=== PATIENT | female | born 1960 | race Caucasian/White ===

== ENCOUNTER 2021-05-06 10:32 | Outpatient (CLI) | payer BC, SELFPAY ==
[2021-05-06 10:56] VITALS: BP 148/96; PULSE 82; RESP 20; TEMP 36.8; O2SAT 92; BMI 30.2
[2021-05-06 11:15] VITALS: BP 129/85; PULSE 94; RESP 18; TEMP 36.7; O2SAT 97
[2021-05-06 11:40] VITALS: BP 166/102; PULSE 87; RESP 18; TEMP 37.7; O2SAT 92
== END 2021-05-06 10:33 | disposition home or self-care (01) ==
LOC: OPS 10:35
PROVIDERS: Visit Provider Family Medicine
DX: U07.1 COVID-19 (principal)
CPT/HCPCS: 96365

== ENCOUNTER → 2022-12-22 08:36 | Outpatient (BNVA) | payer BC, SELFPAY | PROVIDERS: PCP Family Medicine; Visit Provider Family Medicine | DX: I10 Essential (primary) hypertension (principal) | CPT/HCPCS: 80053; 80061; 81000; 84439; 84443; 85025 ==

== ENCOUNTER → 2023-01-29 09:43 | Outpatient (BNVA) | payer BC, SELFPAY | PROVIDERS: PCP Family Medicine; Visit Provider Family Medicine | DX: I10 Essential (primary) hypertension (principal); F41.9 Anxiety disorder, unspecified | CPT/HCPCS: 80048 ==

== ENCOUNTER → 2023-05-07 11:30 | Outpatient (BNVA) | payer BC, SELFPAY | PROVIDERS: PCP Family Medicine; Visit Provider Family Medicine | DX: I10 Essential (primary) hypertension (principal); E03.8 Other specified hypothyroidism; Z86.39 Personal history of other endocrine, nutritional and metabolic disease; F41.9 Anxiety disorder, unspecified | CPT/HCPCS: 84439; 84443; 86376 ==

== ENCOUNTER → 2023-07-30 08:53 | Outpatient (BNVA) | payer BC, SELFPAY | PROVIDERS: PCP Family Medicine; Visit Provider Family Medicine | DX: E06.3 Autoimmune thyroiditis (principal); Z86.39 Personal history of other endocrine, nutritional and metabolic disease; J32.9 Chronic sinusitis, unspecified; F41.9 Anxiety disorder, unspecified; I10 Essential (primary) hypertension | CPT/HCPCS: 84439; 84443; 86376 ==

== ENCOUNTER 2024-03-08 13:06 | Emergency (ER) | payer BC, SELFPAY ==
[2024-03-08 13:19] VITALS: BP 111/75; PULSE 121; RESP 16; TEMP 37.3; O2SAT 96
--- NOTE | 2024-03-08 13:30 | XR_ITS ---
WS: [id number] XR chest 1V portable [id number] REASON FOR EXAM: cough, SOB FINDINGS: Mild tortuosity and ectasia of the thoracic aorta. Normal heart size. Calcified granulomas disease in both hemithoraces. No acute pulmonary parenchymal or pleural abnormality. Moderate thoracic dextroscoliosis with moderate degenerative spondylosis. XR/XR chest 1V portable [id number] IMPRESSION: No acute chest abnormality.
--- NOTE | 2024-03-08 13:31 | ED_ITS ---
HPI - SOB/Dyspnea 2 General: Chief Complaint: Shortness of Breath/Dyspnea Stated Complaint: sob, migraine, covid exposure Time Seen by Provider: 03/08/24 13:24 Source: patient Mode of arrival: ambulatory Limitations: no limitations History of Present Illness: HPI Narrative: Patient is a 63-year-old female who presents to the emergency department for complaints of cough and shortness of breath over the past couple of days. Patient states she was exposed to COVID on Wednesday, and since then has developed the symptoms. Also notes that she is coughed so much that she now has a terrible migraine headache. She denies any pertinent past medical history other than some hypertension. Her cough has not been productive. States her shortness of breath is worse with any ambulation or exertion, and also feels short of breath at rest. Denies any chest pain, palpitations, fevers, abdominal pain, nausea or vomiting, or any other symptoms. She does note that her appetite has been decreased, she has been drinking Pedialyte. She does not use albuterol inhaler and has not done any treatments at home. She currently is on Bactrim and was recently seen at urgent care for the symptoms, also states she recently had a heatstroke. No other symptoms reported at this time. MD elicited complaint: shortness of breath and cough Onset (ago): day(s) Context: other (Sick exposure) Timing: constant Severity: moderate Exacerbating factors: exertion Relieving factors: nothing Associated symptoms: Deny abdominal pain, chest pain, fever(s), lightheadedness, nausea, palpitations or vomiting Related Data: Home oxygen amount: none Review of Systems 2 General: Reports: 10 or more systems reviewed and unremarkable except in HPI and below Const: Reports: change in appetite; Denies: fever(s), chills or fatigue Eyes: Denies: change in vision ENMT: Denies: throat pain, ear or mastoid pain or nasal discharge Card: Denies: chest pain, palpitations, swelling of feet/ankles or lightheadedness Resp: Reports: dyspnea and non-productive cough; Denies: wheezing GI: Denies: abdominal pain, nausea, vomiting, diarrhea or constipation : Denies: flank pain, difficulty voiding, dysuria or urinary frequency Musc: Denies: neck pain, back pain or joint pain Skin/Breast: Denies: rash Neuro: Reports: headache(s); Denies: numbness in extremities or weakness in extremities PFSH ED 2 PFSH: Medical History Hypertension Anxiety Family History Father Cancer stomach Other Dementia Diabetes Hypertension Denies family history of CAD (coronary artery disease) Clotting disorder Hyperlipidemia Psychiatric illness Chronic kidney disease (CKD) Anesthesia complication Bleeding disorder Lung disease Stroke Social History Smoking and tobacco/nicotine status: unknown if used tobacco/nicotine Alcohol intake: current Alcohol intake frequency: holidays/special occasions only Substance/Drug Use: current Substance/Drug use frequency: few times a month Other substance/drug use details: CHHAYA Ramirez Lives independently: Yes Marital status: Number of children: 2 Current occupational status: employed Current occupation: [employer] Special isai needs: No Agree to transfusion: Yes Physical Exam 2 Const: COMMON NORMALS: patient oriented x3 and no limitations GENERAL APPEARANCE: cooperative, well developed and anxious O RIENTATION/CONSCIOUSNESS: Yes awake, Yes oriented to person, Yes oriented to place and Yes oriented to time HENMT: COMMON NORMALS: normocephalic, atraumatic, hearing grossly normal bilaterally, moist oral mucous membranes and oropharynx normal HEAD & SCALP: normocephalic and atraumatic Eye: COMMON NORMALS: Equal, round and reactive pupils present, EOMs intact bilaterally and conjunctivae normal CONJUNCTIVA: Yes conjunctivae normal P UPIL: Yes Equal, round and reactive pupils present Neck/C-Spine: COMMON NORMALS: full ROM, supple and no JVD Resp: COMMON NORMALS: normal respiratory effort, No retractions, No use of accessory muscles and clear to auscultation bilaterally EFFORT & INSPECTION: Yes Actively coughing non-productive AUSCULTATION: clear to auscultation bilaterally Cardio: COMMON NORMALS: no JVD, regular rhythm, No clicks present (Cardio), No murmurs present (Cardio) and No rub (Cardio) RATE: tachycardic RHYTHM: r egular rhythm GI: COMMON NORMALS: Normal to inspection, nondistended, normoactive bowel sounds present, Soft to palpation and non-tender AUSCULTATION: Yes normoactive bowel sounds PALPATION: Yes Soft to palpation RECTAL EXAM: d eferred Extremity: COMMON NORMALS: normal to inspection, full ROM and capillary refill normal Neuro: COMMON NORMALS: patient oriented x3, moves all extremities, no focal motor deficits and no sensory deficits noted SENSORIUM/ORIENTATION: Yes oriented to person, Yes oriented to place and Yes oriented to time Skin: COMMON NORMALS: no rashes or lesions noted GENERAL SKIN EXAM: no rashes or lesions noted Course 2 Vital Signs: Vital signs: Vital Signs Temperature 99.1 F 03/08/24 13:19 Pulse Rate 101 H 03/08/24 13:58 Respiratory Rate 20 H 03/08/24 13:58 Blood Pressure 111/75 03/08/24 13:19 Pulse Oximetry 99 03/08/24 13:58 Oxygen Delivery Me thod Room Air 03/08/24 13:58 MDM - SOB/Dyspnea Medical Decision Making Patient presented with cough and shortness of breath developing over the last couple of days after she noted exposure to COVID on Wednesday. On exam her lungs were clear to auscultation though she was actively coughing and did appear anxious. She was noted to be tachycardic on arrival, however has been satting 96 to 100% on room air throughout the entirety of her ED course. In addition she has been afebrile. Her labs were unremarkable, sodium noted to be a little low as well as her glucose a little high and she is started on IV fluids. In addition she is given a breathing treatment. Her EKG was reviewed with Dr. Gordon and showed sinus tachycardia with no acute STEMI. Chest x-ray obtained that was normal. A D-dimer was also obtained that was minimally elevated so CTA was ordered that did rule out a pulmonary embolus. No pneumonia. Her UA was also negative and respiratory panel negative. Overall negative workup, and I still believe patient is dealing with a viral syndrome of some sort, and we will treat conservatively. I will treat her nausea with Zofran and give steroids to help with her breathing at home. She is instructed to follow-up with her primary care provider for further evaluation. In addition, on recheck she states that she does feel much better, still has a headache and I will give her Toradol prior to discharge. Strict return precautions were given. Patient discharged home at this time. Lab Data 03/08/24 13:42 03/08/24 13:42 Labs/Radiology: Radiology Impressions Chest X-Ray 03/08/24 13:30 IMPRESSION: No acute chest abnormality. Chest CTA 03/08/24 14:13 IMPRESSION: 1. Limited opacification of the pulmonary arteries. Centrally there is no pulmonary embolism. 2. No pneumonia. 3. 8 mm noncalcified nodule medial RIGHT lower lobe. Recommend follow-up chest CT with IV contrast in 3 months. 4. Indeterminate bilateral hilar lymphadenopathy. May be reactive from the acute process. This can also be followed up in [address] Laboratory Results WBC 11.50 10^3/uL (3.29-11.43) H 03/08/24 13:42 RBC 4.20 10^6/uL (3.85-5.65) 03/08/24 13:42 Hgb 13.10 g/dL (11.27-16.99) 03/08/24 13:42 Hct 39.2 % (36-47) 03/08/24 13:42 MCV 93.3 fl (85-98) 03/08/24 13:42 MCH 31.2 pg (27-33) 03/08/24 13:42 MCHC 33.4 g/dL (30-55) 03/08/24 13:42 RDW 12.4 % (12.1-15.1) 03/08/24 13:42 Plt Count 279 10^3/cmm (157-399) 03/08/24 13:42 MPV 10.1 fL (7.4-10.4) 03/08/24 13:42 Neut % (Auto) 73.2 % 03/08/24 13:42 Lymph % (Auto) 17.4 % 03/08/24 13:42 Elk % (Auto) 8.2 % 03/08/24 13:42 Eos % (Auto) 0.1 % 03/08/24 13:42 Baso % (Auto) 0.6 % 03/08/24 13:42 Neut # (Auto) 8.42 10^3/uL (1.8-7.7) H 03/08/24 13:42 Lymph # (Auto) 2.0 10^3/uL (0.8-4.8) 03/08/24 13:42 Elk # (Auto) 0.9 10^3/uL (0.2-0.9) 03/08/24 13:42 Eos # (Auto) 0.0 10^3/uL (0.0-0.8) 03/08/24 13:42 Baso # (Auto) 0.1 10^3/uL (0.0-0.1) 03/08/24 13:42 Nucleated RBC % (auto) 0 % 03/08/24 13:42 Nucleated RBCs # 0.0 /100WBC 03/08/24 13:42 D-Dimer 0.65 ug/mLFEU (0-0.59) H 03/08/24 13:42 Sodium 134 mmol/L (136-145) L 03/08/24 13:42 Potassium 3.7 mmol/L (3.5-5.1) 03/08/24 13:42 Chloride 99 mmol/L (98-107) 03/08/24 13:42 Carbon Dioxide 20 mmol/L (22-29) L 03/08/24 13:42 Anion Gap 18.7 (5-19) 03/08/24 13:42 BUN 16 mg/dL (8-23) 03/08/24 13:42 Creatinine 1.1 mg/dL (0.5-0.9) H 03/08/24 13:42 GFR Calculation 50.5 mL/min (90-130) L 03/08/24 13:42 Glucose 120 mg/dL (65-115) H 03/08/24 13:42 Calculated Osmolality 280 mOsm/kg (285-295) L 03/08/24 13:42 Calcium 8.7 mg/dL (8.5-10.5) 03/08/24 13:42 Total Bilirubin 0.4 mg/dL (0.15-1.2) 03/08/24 13:42 AST 26 U/L (0-32) 03/08/24 13:42 ALT 24 U/L (0-33) 03/08/24 13:42 Alkaline Phosphatase 108 U/L (35-105) H 03/08/24 13:42 Total Protein 7.6 g/dL (6.6-8.7) 03/08/24 13:42 Albumin 3.9 g/dL (3.5-5.2) 03/08/24 13:42 Globulin 3.7 g/dL (1.3-4.6) 03/08/24 13:42 Urine Color Yellow (Yellow) 03/08/24 14:24 Urine Appearance Slightly cloudy (CLEAR) 03/08/24 14:24 Urine pH 5 (5-7) 03/08/24 14:24 Ur Specific [place] 1.010 (1.005-1.030) 03/08/24 14:24 Urine Protein Neg (Negative) 03/08/24 14:24 Urine Glucose (UA) Norm (Normal) 03/08/24 14:24 Urine Ketones Negative (Negative) 03/08/24 14:24 Urine Blood Trace (Negative) H 03/08/24 14:24 Urine Nitrate Negative (Negative) 03/08/24 14:24 Urine Bilirubin Neg (Negative) 03/08/24 14:24 Urine Urobilinogen Norm mg/dL (Negative) 03/08/24 14:24 Ur Leukocyte Esterase 1+ (Negative) H 03/08/24 14:24 Urine RBC 0-4 /hpf (0-2) H 03/08/24 14:24 Urine WBC 5-10 /hpf (0-5) H 03/08/24 14:24 Ur Squamous Epith Cells 25-40 /hpf (0-5) H 03/08/24 14:24 Amorphous Sediment Not Reportable 03/08/24 14:24 Urine Bacteria Trace /hpf (NONE) 03/08/24 14:24 Hyaline Casts Rare /lpf 03/08/24 14:24 Adenovirus (PCR) Not detected (NOT DETECT) 03/08/24 14:28 C. pneumoniae DNA (PCR) Not detected (NOT DETECT) 03/08/24 14:28 Coronavirus 229E (PCR) Not detected (NOT DETECT) 03/08/24 14:28 Human Metapneumovir PCR Not detected (NOT DETECT) 03/08/24 14:28 Influenza A (H1) PCR Not detected (NOT DETECT) 03/08/24 14:28 Influ A (H1/09) PCR Not detected (NOT DETECT) 03/08/24 14:28 Influenza A (H3) PCR Not detected (NOT DETECT) 03/08/24 14:28 Influenza Type A (PCR) Not detected (NOT DETECT) 03/08/24 14:28 Influenza Type B (PCR) Not detected (NOT DETECT) 03/08/24 14:28 M. pneumoniae (PCR) Not detected (NOT DETECT) 03/08/24 14:28 Parainfluenza 1 (PCR) Not detected (NOT DETECT) 03/08/24 14:28 Parainfluenza 2 (PCR) Not detected (NOT DETECT) 03/08/24 14:28 Parainfluenza 3 (PCR) Not detected (NOT DETECT) 03/08/24 14:28 Parainfluenza 4 (PCR) Not detected (NOT DETECT) 03/08/24 14:28 RSV Type A (PCR) Not detected (NOT DETECT) 03/08/24 14:28 RSV Type B (PCR) Not detected (NOT DETECT) 03/08/24 14:28 Entero/Rhino (PCR) Not detected (NOT DETECT) 03/08/24 14:28 SARS-CoV-2 (PCR) Not detected (NOT DETECT) 03/08/24 14:28 All radiology interpretation(s) finalized by discharge EKG Data EKG 1: I personally reviewed and interpreted this EKG as follows: EKG Interpretation Date: 03/08/24 EKG interpretation time: 13:38 Prior EKG tracings: not available for review Interpretation: Reviewed with Dr. Gordon. Sinus Tachycardia. Rate 116. No STEMI. No previous for comparison. Discharge Plan Discharge Patient Disposition: Home Clinical Impression: Viral syndrome Condition: Stable Prescriptions: New ondansetron HCl 4 mg tablet 4 mg PO Q8H Qty: 30 0RF prednisone 20 mg tablet 60 mg PO ONCE 5 Days Qty: 15 0RF No Action sulfamethoxazole-trimethoprim [Bactrim DS] 800-160 mg tablet 1 tab PO BID 10 Days Qty: 20 0RF mupirocin 2 % ointment 1 applic topical BID Qty: 22 0RF Rx Instructions: apply to lips ibuprofen 800 mg tablet 800 mg PO Q8H PRN (Reason: pain) Qty: 30 0RF fluticasone propionate [Flonase Allergy Relief] 50 mcg/actuation spray,suspension 2 spray intranasal DAILY Qty: 16 3RF Rx Instructions: administer into each nostril hydrochlorothiazide 25 mg tablet 25 mg PO QAM Qty: 90 1RF levothyroxine [Synthroid] 25 mcg tablet 25 mcg PO DAILY Qty: 90 1RF cetirizine [Zyrtec] 10 mg tablet 10 mg PO DAILY Qty: 30 0RF losartan 100 mg tablet See Rx Instructions .ROUTE .COMPLEX Qty: 30 0RF Dose Instruction: Take 1 tablet by mouth once daily Rx Instructions: Take 1 tablet by mouth once daily Discharge Orders: Discharge ED (Routine); Ordered 03/08/24 Ordered By: Jean Carlos Carnes Referrals: Tylor Tracey MD [Primary Care Provider] - Discharge Diet: Usual diet Discharge Activity: Increase activity as tolerated Patient Instructions: Reactive Airways Disease (ED), Viral Syndrome (ED) Activity Restrictions/Additional Instructions: Steroids as prescribed. Zofran for your nausea. Plenty of fluids. Keep a close eye on your blood sugars. Tylenol and ibuprofen for any pain or bodyaches. Contagion precaution. Please follow-up with your primary care provider. Return with any new or concerning symptoms you may have. Coding Level of Care Code ED Radial [employer] for Nena Hughes
--- NOTE | 2024-03-08 13:37 | ECG_ITS ---
[facility] Test Date: 2024-03-08 Pat Name: Sylvie Morejon Department: Room: Gender: Female [place]: : 1960 Requested By: Jean Carlos Aldridge Order Number: [id number] Dheeraj MD: Almas Rosenthal M.D. Measurements Intervals [place] Rate: 116 P: 68 [place]: 165 QRS: 0 QRSD: 97 T: 34 QT: 301 QTc: 418 Interpretive Statements SINUS TACHYCARDIA SEPTAL MYOCARDIAL INFARCTION , OF INDETERMINATE AGE [40+ ms Q WAVE IN V1/V2] No previous ECG available for comparison Electronically Signed On 03-08-2024 15:57:52 CDT by Almas Rosenthal M.D. [id number]
[2024-03-08] MEDS: sodium chloride 0.9% 1,000 ML 999 ML IV (13:48)
[2024-03-08 13:58] VITALS: PULSE 101; RESP 20; O2SAT 99
[2024-03-08] MEDS: ipratropium-albuterol 3 mL Neb INHALATION (14:00)
[2024-03-08 14:03] LABS: Basophils # 0.1 10^3/uL (0.0-0.1); Basophils % 0.6 %; Eosinophils % 0.1 %; Hematocrit 39.2 % (36-47); Lymphocytes % 17.4 %; Mean Corpuscular HGB Conc 33.4 g/dL (30-55); Mean Corpuscular Hemoglobin 31.2 pg (27-33); Mean Corpuscular Volume 93.3 fl (85-98); Mean Platelet Volume 10.1 fL (7.4-10.4); Monocytes # 0.9 10^3/uL (0.2-0.9); Monocytes % 8.2 %; Neutrophils # 8.42 10^3/uL (1.8-7.7); Neutrophils % 73.2 %; Nucleated Red Blood Cells % 0 %; Platelet Count 279 10^3/cmm (157-399); Red Cell Distribution Width 12.4 % (12.1-15.1)
[2024-03-08 14:10] LABS: D Dimer 0.65 ug/mLFEU (0-0.59)
--- NOTE | 2024-03-08 14:13 | CT_ITS ---
WS: [id number] CT CHEST ANGIOGRAPHY WITH REFORMATS HISTORY: sob/cough TECHNIQUE: Contiguous axial images are obtained through the chest during arterial injection of intrav enous contrast. Images are reconstructed to evaluate the pulmonary arteries. MIP imaging also reviewe d. All CT scans at [facility] use at least one of these dose optimization techniques: automat ed exposure control; mA and/or kV adjustment per patient size (includes targeted exams where dose is matched to clinical indication); or iterative reconstruction. CONTRAST: Omnipaque 350; 100 mL IV. DLP: 447.70 mGy.cm COMPARISON: None available. Limited opacification of the pulmonary arteries. No filling defects centrally. Within the lobar branc hes the contrast opacification is suboptimal. Lungs are mildly hyperexpanded. No pneumonia. 8 mm nodu le medial RIGHT lower lobe. Benign granuloma RIGHT middle lobe. Mild atherosclerosis aorta. Mildly enlarged mediastinal and hilar lymph nodes. Largest lymph node at the AP window is 1.5 cm. RIG HT suprahilar lymph node 1.5 cm. Smaller bilateral hilar and paratracheal lymph nodes. Normal size heart. No pericardial or pleural effusion. Small hiatal hernia. Liver appears enlarged although incompletely included on this examination. Splenic granulomata. Small hiatal hernia. Moderate increase in thoracic kyphosis. CT/CT angio chest PE protcl [id number] IMPRESSION: 1. Limited opacification of the pulmonary arteries. Centrally there is no pulm onary embolism. 2. No pneumonia. 3. 8 mm noncalcified nodule medial RIGHT lower lobe. Recommend follow-up chest CT with IV contrast in 3 months. 4. Indeterminate bilateral hilar lymphadenopathy. May be reactive from the acu te process. This can also be followed up in [address]
[2024-03-08 14:14] LABS: Alanine Aminotransferase 24 U/L (0-33); Albumin Level 3.9 g/dL (3.5-5.2); Alkaline Phosphatase 108 U/L (35-105); Anion Gap 18.7 (5-19); Aspartate Amino Transferase 26 U/L (0-32); Blood Urea Nitrogen 16 mg/dL (8-23); Calcium 8.7 mg/dL (8.5-10.5); Carbon Dioxide 20 mmol/L (22-29); Chloride 99 mmol/L (98-107); Creatinine Clr Calc Pharmacy 58.2248; Globulin 3.7 g/dL (1.3-4.6); Glomerular Filtration Rate 50.5 mL/min (90-130); Glucose 120 mg/dL (65-115); Osmolality Calculated 280 mOsm/kg (285-295); Potassium 3.7 mmol/L (3.5-5.1); Sodium 134 mmol/L (136-145); Total Bilirubin 0.4 mg/dL (0.15-1.2); Total Protein 7.6 g/dL (6.6-8.7)
[2024-03-08] MEDS: iohexol 350 mg/mL 500 mL Btl (per mL) IV (15:07)
[2024-03-08 15:47] LABS: Add Urine Microscopic? YES; Bacteria Urine TRACE /hpf; Bilirubin Urine Neg (Negative); Blood Urine Trace (Negative); Glucose Urine UA Norm (Normal); Ketones Urine Negative (Negative); Leukocyte Esterase Urine 1+ (Negative); Nitrate Urine Negative (Negative); Protein Urine Neg (Negative); RBC Urine 0-4 /hpf (0-2); Squamous Epithelial Cell Urine 25-40 /hpf (0-5); Urine Appearance Slightly Cloudy (CLEAR); Urine Color Yellow (Yellow); Urobilinogen Urine Norm (Negative); pH Urine 5 (5-7)
[2024-03-08 15:48] LABS: Hyaline Casts Urine RARE /lpf
[2024-03-08 15:49] LABS: Add Urine Culture? No
[2024-03-08] MEDS: ketorolac 60 mg/2 mL INJ 30 MG IVP (16:21)
[2024-03-08 16:23] VITALS: BP 139/66; PULSE 75; O2SAT 96
[2024-03-08 16:33] LABS: Adenovirus Not Detected (NOT DETECT); Chlamydia Pneumoniae Not Detected (NOT DETECT); Coronavirus 229E,HKU1,NL63,OC4 Not Detected (NOT DETECT); Human Metapneumovirus Not Detected (NOT DETECT); Human Rhinovirus/Enterovirus Not Detected (NOT DETECT); Influenza A Not Detected (NOT DETECT); Influenza A H1 Not Detected (NOT DETECT); Influenza A H1-2009 Not Detected (NOT DETECT); Influenza A H3 Not Detected (NOT DETECT); Influenza B Not Detected (NOT DETECT); Mycoplasma Pneumoniae Not Detected (NOT DETECT); Parainfluenza Virus Type 1 Not Detected (NOT DETECT); Parainfluenza Virus Type 2 Not Detected (NOT DETECT); Parainfluenza Virus Type 3 Not Detected (NOT DETECT); Parainfluenza Virus Type 4 Not Detected (NOT DETECT); Respiratory Syncytial Virus A Not Detected (NOT DETECT); Respiratory Syncytial Virus B Not Detected (NOT DETECT); SARS-COV-2 Not Detected (NOT DETECT)
== END 2024-03-08 17:09 | disposition home or self-care (01) ==
PROVIDERS: Emergency Provider Physician Assistant; PCP Family Medicine
DX: B34.9 Viral infection, unspecified (principal); Z11.52 Encounter for screening for COVID-19; I10 Essential (primary) hypertension
CPT/HCPCS: 71045; 71275; 80053; 81001; 85025; 85378; 87486; 87581; 87633; 93005; 94640; 96361; 96374; 99285; J1885; J7030; Q9967

== ENCOUNTER → 2024-03-24 15:30 | Outpatient (BNVA) | payer BC, SELFPAY | PROVIDERS: PCP Family Medicine; Visit Provider Family Medicine | DX: E06.3 Autoimmune thyroiditis (principal) | CPT/HCPCS: 80053; 84439; 84443 ==

== ENCOUNTER → 2024-05-31 14:48 | Outpatient (BNVA) | payer BC, SELFPAY | PROVIDERS: PCP Family Medicine; Visit Provider Nurse Practitioner | DX: R39.9 Unspecified symptoms and signs involving the genitourinary system (principal) | CPT/HCPCS: 81000; 87086 ==

== ENCOUNTER → 2024-06-21 12:53 | Outpatient (BNVA) | payer BC, SELFPAY | PROVIDERS: PCP Family Medicine; Visit Provider Family Medicine | DX: R30.0 Dysuria (principal) | CPT/HCPCS: 81000 ==

== ENCOUNTER → 2024-11-24 12:02 | Outpatient (BNVA) | payer BC, SELFPAY | PROVIDERS: PCP Family Medicine; Visit Provider Family Medicine | DX: E06.3 Autoimmune thyroiditis (principal) | CPT/HCPCS: 80053; 84439; 84443 ==

== ENCOUNTER → 2025-07-18 14:58 | Outpatient (BNVA) | payer BC, SELFPAY | PROVIDERS: PCP Family Medicine; Visit Provider Emergency Medicine | DX: R53.81 Other malaise (principal) | CPT/HCPCS: 87426 ==